=== PATIENT | male | born 1965 | race Caucasian/White ===

== ENCOUNTER 2016-12-31 12:21 | Emergency (ER) | payer BC ==
[2016-12-31 12:31] VITALS: BP 126/57
--- NOTE | 2016-12-31 12:37 | EDM.PDOC ---
ED HPI GENERAL MEDICAL PROBLEM - General Chief Complaint: Flank Pain Stated Complaint: POSSIBLE KIDNEY INFECTION Time Seen by Provider: 12/31/16 12:26 Source of Information: Reports: Patient History Limitations: Reports: No Limitations - History of Present Illness INITIAL COMMENTS - FREE TEXT/NARRATIVE: Pt has a long standing history of kidney issues dating back to when he was 3 yrs old when a kidney urostomy was placed. Pt has been seen all of his life in [facility] for treatment and management of his kidney issues. For the approx last 10 years or so he states he has been having kidney infections approx 3-4 times a years. They are progressing a bit and his urologist in [place] is watching closely. Currently the discomfort started yesterday and he noted the urine becoming more dark and concentrated even though he was drinking alot of water. Pt denies getting fevers as an adult with any of his infections. The symptoms he is experiencing today are similar to the past infections as well. Onset: Sudden Onset Date: 12/30/16 Duration: Getting Worse Quality: Reports: Ache, Dull Severity: Moderate Treatments QUICK SKETCH ARTIST: Reports: Aspirin - Related Data Allergies Allergy/AdvReac Type Severity Reaction Status Date / Time No Known Allergies Allergy Verified 12/31/16 12:33 Home Meds: Home Meds Ciprofloxacin/Ciprofloxa HCl [Cipro Xr 500 mg Tablet] 500 mg PO BID 2 Days #4 tbmp.24hr 12/31/16 [Rx] Methenamine Hippurate [Methenamine Hippurate] 1 gm PO ASDIRECTED 12/31/16 [ History] Telmisartan [Telmisartan] 40 mg PO DAILY 12/31/16 [History] Past Medical History Cardiovascular History: Reports: Arrhythmia Other Cardiovascular History: Patient has had arrhythmia, holter monitor for irregular heart rates Gastrointestinal History: Reports: Bowel Obstruction Other Gastrointestinal History: bowel obstruction younger, spleen removed Genitourinary History: Reports: Urostomy Other Genitourinary History: Urostomy 48 years, kidney infections are frequently - Past Surgical History GI Surgical History: Reports: Colostomy Social & Family History - Family History Family Medical History: Noncontributory - Tobacco Use Smoking Status *Q: Never Smoker Second Hand Smoke Exposure: No - Alcohol Use Days Per Week of Alcohol Use: 0 - Recreational Drug Use Recreational Drug Use: No ED ROS GENERAL - Review of Systems Review Of Systems: See Below Constitutional: Reports: No Symptoms. Denies: Fever, Chills, Malaise, Weakness , Fatigue, Night Sweats, Diaphoresis HEENT: Reports: No Symptoms Respiratory: Reports: No Symptoms Cardiovascular: Reports: No Symptoms Endocrine: Reports: No Symptoms GI/Abdominal: Reports: No Symptoms : Reports: Flank Pain, Frequency Musculoskeletal: Reports: No Symptoms Skin: Reports: No Symptoms ED EXAM, RENAL/ - Physical Exam Exam: See Below Exam Limited By: No Limitations General Appearance: Alert, WD/WN, No Apparent Distress Throat/Mouth: Normal Inspection, Normal Lips, Normal Teeth, Normal Gums Respiratory/Chest: No Respiratory Distress, Lungs Clear, Normal Breath Sounds, No Accessory Muscle Use Cardiovascular: Normal Peripheral Pulses GI/Abdominal: Normal Bowel Sounds Back Exam: Normal Inspection, Full Range of Motion. No: CVA Tenderness (L) Extremities: Normal Inspection, Normal Range of Motion, Non-Tender, No Pedal Edema, Normal Capillary Refill Neurological: Alert, Oriented, Normal Cognition Skin Exam: Warm, Dry, Normal Color Course - Vital Signs Last Recorded V/S: Last Vital Signs Temp 36.4 C 12/31/16 12:25 Pulse 78 12/31/16 12:25 Resp 16 12/31/16 12:25 BP 126/57 L 12/31/16 12:25 Pulse Ox 100 12/31/16 12:25 - Orders/Labs/Meds Orders: Active Orders 24 hr Category Date Time Status UA W/MICROSCOPIC [URIN] Stat Lab 12/31/16 12:35 Ordered Departure - Departure Time of Disposition: 13:01 Disposition: Home, Self-Care 01 Condition: Good Clinical Impression: UTI, Urinary tract infectious disease, Acute flank pain, History of urostomy - Discharge Information Instructions: Flank Pain, [id number], Pain Medicine Instructions, Easy-to- Read Forms: ED Department Discharge - My Orders Last 24 Hours: My Active Orders 12/31/16 12:35 UA W/MICROSCOPIC [URIN] Stat - Assessment/Plan Last 24 Hours: My Active Orders 12/31/16 12:35 UA W/MICROSCOPIC [URIN] Stat
[2016-12-31] MEDS ORDERED: Take Home: Ciprofloxacin 500 MG Tab, 2 Tab Pack PO ONE (12:59)
== END 2016-12-31 13:23 | disposition home or self-care (01) ==
LOC: VM.ED 12:21
DX: N39.0 Urinary tract infection, site not specified (principal); Z98.890 Other specified postprocedural states; Z79.899 Other long term (current) drug therapy
CPT/HCPCS: 81001; 87086; 99283; A9270; 87088; 87186

== ENCOUNTER 2020-02-08 14:07 | Emergency (ER) | payer BC, OTHER ==
[2020-02-08] MEDS ORDERED: Take Home: Ciprofloxacin 500 MG Tab, 2 Tab Pack ONE (15:00)
--- NOTE | 2020-02-11 18:28 | PCM.SN.2 ---
- Free Text/Narrative Note: This is a progress note on this patient on 02-11-20. Urine culture returns with 3 total organisms organism #1 Pseudomonas aeruginosa with greater than 100,000 cfu as well as 2 gram-positive cocci with 78810 CFU's. These cocci are most likely either colonized bacteria or contaminants from the patient's urostomy bag and not the infectious culprit. Reviewing the patient's chart he was initially placed on Cipro for 3 days. Which with this urine culture it is resistant to Cipro and Levaquin. I called and spoke with the patient tonight. He actually has some improvement of his pain. He has no fever no chills. No flank pain. He still does not feel back to normal and still kind of feels malaise and fatigue. The amount of mucus in his urostomy drainage is unchanged. He reports that he was contacted by the ER the last couple of days and told to stop the Cipro and started on Augmentin. I am unable to find any documentation of change in antibiotics. Augmentin may take care of the gram-positive cocci but I really think that these are more contaminant and/or colonized bacteria within the urostomy bag and the Pseudomonas would be his more infectious culprit which will not respond to Augmentin. With him being resistant to Cipro and Levaquin the only options then from this urine culture would be IV therapy. I talked at length with this patient who is also going to contact his [place] [facility] as well. We will plan on outpatient antibiotics Cefepime 1 gram qd for the next 7 days. He did not have any labs drawn while he was in the emergency department for his visit to evaluate his creatinine clearance reviewing his creatinine clearance in the [facility] link his last creatinine was 1.3 giving him a creatinine clearance of 57 although this was a year ago. We will draw his labs in the morning when he comes on 02-12-20 and evaluate his kidney function at that time. We will start him with cefepime 1 g IV push every 24 hours unless otherwise guided by his [place] primary care doctors. He is comfortable with this plan and his questions answered. I will see him in the healthcare network pricing consultant setting and follow him as I will be in the ED for most of his therapy.
== END 2020-02-08 15:06 ==
LOC: VM.ED 14:07
DX: N39.0 Urinary tract infection, site not specified (principal)
CPT/HCPCS: 81001; 81003; 87086; 87088; 87186; 96372; 99283; A9270-GY

== ENCOUNTER 2021-05-20 13:15 | Emergency (ER) | payer OTHER ==
[2021-05-20] MEDS ORDERED: Sodium Chloride 0.9% 10 ML Syringe FLUSH PRN (13:27)
[2021-05-20] MEDS: LORazepam 2 MG/ML SDV IVPUSH ONE (13:47)
[2021-05-20 14:03] LABS: CHLORIDE,CL 96 mmol/L (98-107)
[2021-05-20 14:04] LABS: ANION GAP 17.3 mmol/L (5-15); SODIUM,NA 128 mmol/L (136-145)
[2021-05-20] MEDS: Sodium Chloride 0.9% 1,000 ML IV SCH (14:10)
[2021-05-20] MEDS: Potassium Bicarbonate/Cit Ac 10 MEQ Effervescent Tab PO ONE (14:57)
[2021-05-20 19:07] VITALS: BP 139/61; PULSE 81
== END 2021-05-20 15:40 | disposition home or self-care (01) ==
LOC: VM.ED 13:15
DX: U07.1 COVID-19 (principal); I12.9 Hypertensive chronic kidney disease with stage 1 through stage 4 chronic kidney disease, or unspecified chronic kidney disease; N18.31 Chronic kidney disease, stage 3a; E87.6 Hypokalemia; E87.1 Hypo-osmolality and hyponatremia; Z91.030 Bee allergy status
CPT/HCPCS: 80053; 81001; 82728; 83605; 83615; 84145; 84484; 85025; 86140; 87086; 87088; 87186; 93005; 96374; 99283-25; 99284; A9270-GY; J2060; J7030

== ENCOUNTER 2022-03-18 15:25 | Emergency (ER) | payer OTHER ==
[2022-03-18 15:38] VITALS: BP 134/66; PULSE 82
[2022-03-18] MEDS ORDERED: Meropenem 1 GM SDV IVPUSH ONE ×2 (16:10→22:00)
== END 2022-03-18 17:00 | disposition home or self-care (01) ==
LOC: VM.ED 15:25
DX: N39.0 Urinary tract infection, site not specified (principal); B96.5 Pseudomonas (aeruginosa) (mallei) (pseudomallei) as the cause of diseases classified elsewhere
CPT/HCPCS: 96374; 99283-25; J2185

== ENCOUNTER 2024-02-14 10:05 | Emergency (ER) | payer BC, OTHER ==
[2024-02-14] MEDS ORDERED: Sodium Chloride 0.9% 10 ML Syringe FLUSH PRN (10:20)
[2024-02-14 10:36] LABS: BASOPHILS ABSOLUTE AUTO 0.1 x10^3/uL (0.0-0.2); BASOPHILS PERCENT AUTO 0.7 % (0.2-1.2); EOSINOPHILS ABSOLUTE AUTO 0.1 x10^3/uL (0.0-0.5); EOSINOPHILS PERCENT AUTO 0.8 % (0.0-4.0); HEMATOCRIT 36.4 % (40.0-52.0); HEMOGLOBIN 12.4 g/dL (14.0-18.0); IMMATURE GRAN ABSOLUTE AUTO 0.02 x10^3/uL (0.00-0.07); LYMPHOCYTES ABSOLUTE AUTO 3.3 x10^3/uL (1.0-4.8); LYMPHOCYTES PERCENT AUTO 44.4 % (25.0-50.0); MEAN CORPUSCULAR HEMOGLOBIN 29.9 pg (26.0-32.0); MEAN CORPUSCULAR HGB CONC 34.1 g/dL (32.0-36.0); MEAN CORPUSCULAR VOLUME 87.7 fL (78.0-93.0); MONOCYTES ABSOLUTE AUTO 0.7 x10^3/uL (0.0-0.8); NEUTROPHILS ABSOLUTE AUTO 3.4 x10^3/uL (1.8-7.7); NEUTROPHILS PERCENT AUTO 44.8 % (50.0-80.0); PLATELET COUNT,PLT 324 x10^3/uL (130-400); RED BLOOD CELL COUNT 4.15 x10^6/uL (4.5-6.0); WHITE BLOOD CELL COUNT,WBC 7.5 x10^3/uL (4.0-10.0)
[2024-02-14] MEDS: Ondansetron 4 MG/2 ML SDV IVPUSH ONE (10:47)
[2024-02-14 11:07] LABS: A/G RATIO 1.09; ALANINE AMINOTRANSFERASE,ALT 23 U/L (16-63); ALBUMIN 3.5 g/dL (3.4-5.0); ALKALINE PHOSPHATASE 76 U/L (46-116); ANION GAP 17.7 mmol/L (5-15); ASPARTATE AMNIOTRANSFERASE,AST 18 U/L (15-37); BILIRUBIN TOTAL 0.6 mg/dL (0.2-1.0); BLOOD UREA NITROGEN,BUN 34 mg/dL (7-18); CALCIUM 8.6 mg/dL (8.5-10.1); CARBON DIOXIDE,CO2 21 mmol/L (21-32); CHLORIDE,CL 103 mmol/L (98-107); CREATININE 1.4 mg/dL (0.70-1.30); EST CRCL DRUG DOSING (CG) 51.48 mL/min; ESTIMATED GFR 59 mL/min (>=60); GLUCOSE RANDOM 143 mg/dL (70-99); LIPASE 78 U/L (19-71); POTASSIUM,K 3.7 mmol/L (3.5-5.1); PROTEIN TOTAL,TP 6.7 g/dL (6.4-8.2); SODIUM,NA 138 mmol/L (136-145)
[2024-02-14] MEDS: fentaNYL 50 MCG/ML SDV IVPUSH ONE ×2 (11:16→14:53)
[2024-02-14] MEDS: Sodium Chloride 0.9% 1,000 ML IV ONE ×2 (12:05→14:24)
[2024-02-14] MEDS: Iopamidol 612 MG/ML 100 ML Bottle IVPUSH ONE (12:13)
[2024-02-14 12:45] VITALS: BP 125/64; PULSE 62
[2024-02-14] MEDS ORDERED: Lidocaine 4% 5 ML Amp TOP ONE (14:32)
== END 2024-02-14 15:01 | disposition short-term general hospital (02) ==
LOC: VM.ED 10:05
DX: K56.609 Unspecified intestinal obstruction, unspecified as to partial versus complete obstruction (principal); Z91.030 Bee allergy status; Z79.899 Other long term (current) drug therapy
CPT/HCPCS: 36415; 43752; 71045; 74177; 80053; 82271; 83690; 84484; 85025; 93005; 93010; 96361; 96374; 96375; 96376; 99284; 99285-25; J2405; J3010; J7030; Q9967